=== PATIENT | female | born 1960 | race Caucasian/White ===

== ENCOUNTER 2025-03-16 12:43 | Emergency (ER) | payer MEDICARE, SELFPAY ==
[2025-03-16 12:48] VITALS: BP 141/91; PULSE 82; TEMP 36.8; O2SAT 99; BMI 15.9
--- NOTE | 2025-03-16 12:58 | PC.NURSE ---
Pain to left foot, foot is red in color, skin is warm and pulses present. Wound to left heel present, area is open in center with macerated skin surrounding site.
--- NOTE | 2025-03-16 13:10 | XR_ITS ---
[address] [address] Patient Name: RAGHAVENDRA LANG MRN: [id number] date: 1960 Sex: F Assigned Patient Location: ER Current Patient Location: ER Accession/Order Number: [id number] Exam Date: 03/16/2025 13:35 Report Date: 03/16/2025 13:36 At the request of: SALUD BILLS MD Procedure: XR foot LT min 3V 3 views left foot plain film COMPARISON:None HISTORY: Left foot heel ulcer. ACUTE FINDINGS: None DEGENERATIVE CHANGE: Mild. Posterior and inferior calcaneal spurring SOFT TISSUE FINDINGS: No subcutaneous air. No radiodense foreign body. Atherosclerosis. JOINT EFFUSION: None POSTOP CHANGES: None BONE MINERALIZATION: Adequate XR/XR foot LT min 3V IMPRESSION: No plain film findings of acute osteomyelitis. No subcutaneous air. Impression dictated by: Phan Saenz M.D. 03/16/2025 1:36 PM Dictation Location: [employer] Electronically authenticated by: [id number] Y Date: 03/16/2025 13:36
[2025-03-16 13:35] LABS: Basophils Absolute Auto 0.1 10^3/uL (0.0-0.1); Basophils Percent Auto 0.6 % (0.2-2.0); Eosinophils Absolute Auto 0.2 10^3/uL (0.0-0.7); Eosinophils Percent Auto 1.2 % (0.9-7.0); Hematocrit 41.4 % (36.0-48.0); Hemoglobin 13.9 g/dL (12.0-16.0); Immature Granulocytes Abs Auto 0.03 10^3/uL (0.00-0.03); Immature Granulocytes Pct Auto 0.2 % (0.0-0.5); Lymphocytes Absolute Auto 1.5 10^3/uL (1.2-3.8); Lymphocytes Percent Auto 12.2 % (20.5-60.0); Mean Corpuscular HGB Conc 33.6 g/dL (29.9-35.2); Mean Corpuscular Hemoglobin 30.2 pg (26.7-34.0); Mean Corpuscular Volume 89.8 fL (81.0-99.0); Monocytes Absolute Auto 0.8 10^3/uL (0.3-0.8); Monocytes Percent Auto 6.8 % (1.7-12.0); Neutrophils Absolute Auto 9.5 10^3/uL (1.4-6.5); Platelet Count 297 10^3/uL (150-450); Red Blood Count 4.61 10^6/uL (4.20-5.40); Red Cell Distribution Width 14.7 % (11.0-15.0); White Blood Count 12.1 10^3/uL (4.0-11.0)
[2025-03-16 13:40] LABS: Erythrocyte Sedimentation Rate 70 mm/hr (<=30)
[2025-03-16 13:50] LABS: Alanine Aminotransferase 43 U/L (14-59); Albumin Globulin Ratio 0.7; Alkaline Phosphatase 116 U/L (46-116); Anion Gap 15.6; Aspartate Amino Transferase 38 U/L (15-37); BUN Creatinine Ratio 24.3; Bilirubin Total 0.7 mg/dL (0.2-1.0); C Reactive Protein 4.02 mg/dL (<=0.50); Calcium 9.8 mg/dL (8.5-10.1); Carbon Dioxide 26.5 mmol/L (21.0-32.0); Chloride 100 mmol/L (98-107); Estimated GFR (African America >60 (>=60 mL/min/1.73m^2); Estimated GFR (Non-African Ame >60 (>=60 mL/min/1.73m^2); Globulin 4.6 g/dL; Glucose 143 mg/dL (74-106); Potassium 4.1 mmol/L (3.5-5.1); Sodium 138 mmol/L (136-145); Total Protein 7.6 g/dL (6.4-8.2)
[2025-03-16 14:03] VITALS: BP 137/66; PULSE 68; O2SAT 99
[2025-03-16] MEDS: CEPHALEXIN 500 MG CAPSULE PO (14:31)
--- NOTE | 2025-03-16 15:08 | ED.EXTPRO1 ---
HPI - Extremity Problem General Chief complaint: Extremity Problem, Nontraumatic Stated complaint: L LEG DISCOLORATION, L LEG PAIN Time Seen by Provider: 03/16/25 12:59 Source: patient Mode of arrival: walk-in Limitations: no limitations History of Present Illness HPI Narrative: The patient 65-year-old female with history of below the knee amputation, and history of diabetes as well as peripheral vascular disease, the patient have a history of stent placed in her left lower extremities and recently she was evaluated by vascular in another facility because she have some discolored spots in her toes. The patient is coming to the ER today after she already had an ulcers in her left lower extremity. Although them with most of them are healing but she have this ulcer at the posterior aspect of the left foot heel. That had a bullous fluid initially but apparently the fluid was burst and the patient was worried about the redness surrounding the bullous The patient was started antibiotic by one of her physician almost a week ago doxycycline twice daily are mostly covering for underlying infection The patient today is coming to the ER with a stool reason of the evaluation of the ulcer after the bullae burst No fever no chills no other concerns Pain is only limited when the patient put some weight on her left foot Related Data Home Medications ?Medication ?Instructions ?Recorded ?Confirmed atorvastatin 80 mg tablet 80 mg PO .daily 03/16/25 03/16/25 carvedilol 3.125 mg tablet 3.125 mg PO Q12H 03/16/25 03/16/25 doxycycline hyclate 100 mg tablet 100 mg PO Q12H 03/16/25 03/16/25 fluoxetine 40 mg capsule 40 mg PO DAILY 03/16/25 03/16/25 gabapentin 600 mg tablet 600 mg PO Q12H 03/16/25 03/16/25 rivaroxaban 20 mg tablet (Xarelto) 20 mg PO Q24H 03/16/25 03/16/25 sitagliptin phosphate 100 mg 100 mg PO DAILY 03/16/25 03/16/25 tablet (Januvia) spironolactone 25 mg tablet 25 mg PO Q12H 03/16/25 03/16/25 Previous Rx's ?Medication ?Instructions ?Recorded cephalexin 500 mg capsule 500 mg PO Q8H 7 days #21 caps 03/16/25 Allergies Allergy/AdvReac Type Severity Reaction Status Date / Time Sulfa (Sulfonamide AdvReac Intermediate Hives Verified 03/16/25 12:55 Antibiotics) Review of Systems ROS Status of ROS 10 or more systems reviewed and unremarkable except as noted in history and below PFSH PFSH Social History Little interest or pleasure in doing things: not at all Feeling down, depressed, or hopeless: not at all Exam Narrative Exam Narrative: Nurses notes and vital signs reviewed and patient is not hypoxic. General: Well-appearing and in no apparent distress. Skin: Warm, dry, no pallor noted. No rash. Head: Normocephalic, atraumatic. Neck: Supple, non-tender. Cardiovascular: Regular Rate and Rhythm without murmur, gallop or rub. Respiratory: No accessory muscle use or respiratory distress. Lungs are clear to auscultation, no wheezing, rales or rhonchi Chest Wall: no tenderness Back: No midline thoracic or lumbar vertebral tenderness. No CVA tenderness Musculoskeletal: Right below the knee amputation and the stump is healing well the patient have a chronic ulcer at the anterior aspect of the knee that is having a clean dressing on top of it and according to her there is a home health care nurse to take care over it with the dressing changes The patient left foot shows multiple discolored spots in the toes she does have anterior tibial pulse that is preserved and apparently marked by the vascular service for the location On the posterior aspect of the patient left foot there is an ulcer that is measuring 2 cm oval in shape with a surrounding redness that the patient is concerned about it is almost 1 to 2 cm of redness with no discharge and no drainage and no surrounding induration and there is no tenderness on palpation The patient also have a decubital ulcer that is almost 1 x 2 cm oval in shape and healing with a dry keloid on top of it no surrounding induration Constitutional Vital Signs, click to edit/add: Last Vital Signs Temp 98.2 F 03/16/25 12:48 Pulse 68 03/16/25 14:03 Resp 20 03/16/25 14:03 BP 137/66 03/16/25 14:03 Pulse Ox 99 03/16/25 14:03 O2 Del Method Room Air 03/16/25 14:03 Course Vital Signs Vital signs: Vital Signs Temperature 98.2 F 03/16/25 12:48 Pulse Rate 82 03/16/25 12:48 Respiratory Rate 18 03/16/25 12:48 Blood Pressure 141/91 03/16/25 12:48 Pulse Oximetry 99 03/16/25 12:48 Temperature 98.2 F 03/16/25 12:48 Pulse Rate 68 03/16/25 14:03 Respiratory Rate 20 03/16/25 14:03 Blood Pressure 137/66 03/16/25 14:03 Pulse Oximetry 99 03/16/25 14:03 Oxygen Delivery Method Room Air 03/16/25 14:03 MDM - Extremity (Nontraumatic) MDM Narrative Medical decision making narrative: The patient is a high risk patient history of diabetes and peripheral vascular disease but her ulcers seem to be healing and the fact that the bullae burst it showed the depth of the ulcer which is mostly stage II It is healing well right now although there is the redness that the patient is concerned about it is very mild and with the patient history of being on doxycycline and the fact that she is diabetic I will add Keflex to the doxycycline and I referred her to podiatry as outpatient The patient CBC shows mild leukocytosis and the chemistry was within normal she does have a elevated ESR and CRP but the x-ray does not show any osteomyelitis Clean dressing was applied and the patient is to monitor her symptoms in case no improvement she is to come back to the ER, on my clinical exam that also seem to be more chronic and healing than actively infected and the antibiotic was initiated just because of the history of the patient in the high risk Patient to come back in case of increasing redness fever or any other concerns Patient referred to podiatry as outpatient The patient is to follow up with primary care physician in next 2-3 days or to return to the emergency department should any of the signs or symptoms worsen or new symptoms develop. The patient agrees with the following Diagnosis and Treatment plan and the patient will be discharged home. Lab Data Labs: Lab Results 03/16/25 Range/Units 13:27 WBC 12.1 H (4.0-11.0) 10^3/uL RBC 4.61 (4.20-5.40) 10^6/uL Hgb 13.9 (12.0-16.0) g/dL Hct 41.4 (36.0-48.0) % MCV 89.8 (81.0-99.0) fL MCH 30.2 (26.7-34.0) pg MCHC 33.6 (29.9-35.2) g/dL RDW 14.7 (11.0-15.0) % Plt Count 297 (150-450) 10^3/uL MPV 10.0 (9.5-13.5) fL Neut % (Auto) 79.0 H (43.0-75.0) % Lymph % (Auto) 12.2 L (20.5-60.0) % Gentry % (Auto) 6.8 (1.7-12.0) % Eos % (Auto) 1.2 (0.9-7.0) % Baso % (Auto) 0.6 (0.2-2.0) % Neut # (Auto) 9.5 H (1.4-6.5) 10^3/uL Lymph # (Auto) 1.5 (1.2-3.8) 10^3/uL Gentry # (Auto) 0.8 (0.3-0.8) 10^3/uL Eos # (Auto) 0.2 (0.0-0.7) 10^3/uL Baso # (Auto) 0.1 (0.0-0.1) 10^3/uL Abs Immat Gran (auto) 0.03 (0.00-0.03) 10^3/uL Imm/Tot Granulo (auto) 0.2 (0.0-0.5) % ESR 70 H (<=30) mm/hr Sodium 138 (136-145) mmol/L Potassium 4.1 (3.5-5.1) mmol/L Chloride 100 (98-107) mmol/L Carbon Dioxide 26.5 (21.0-32.0) mmol/L Anion Gap 15.6 BUN 18.0 (7.0-18.0) mg/dL Creatinine 0.74 (0.55-1.02) mg/dL Est GFR ( Amer) >60 (>=60 mL/min/1.73m^2) Est GFR (Non-Af Amer) >60 (>=60 mL/min/1.73m^2) BUN/Creatinine Ratio 24.3 Glucose 143 H (74-106) mg/dL Calcium 9.8 (8.5-10.1) mg/dL Total Bilirubin 0.7 (0.2-1.0) mg/dL AST 38 H (15-37) U/L ALT 43 (14-59) U/L Alkaline Phosphatase 116 (46-116) U/L C-Reactive Protein 4.02 H (<=0.50) mg/dL Total Protein 7.6 (6.4-8.2) g/dL Albumin 3.0 L (3.4-5.0) g/dL Globulin 4.6 g/dL Albumin/Globulin Ratio 0.7 Discharge Plan Discharge Chief Complaint: Extremity Problem, Nontraumatic Clinical Impression: Cellulitis, Diabetic foot ulcer Patient Disposition: Home, Self-Care Time of Disposition Decision: 14:36 Condition: Good Prescriptions / Home Meds: New cephalexin 500 mg capsule 500 mg PO Q8H 7 Days Qty: 21 0RF No Action atorvastatin 80 mg tablet 80 mg PO .daily carvedilol 3.125 mg tablet 3.125 mg PO Q12H doxycycline hyclate 100 mg tablet 100 mg PO Q12H fluoxetine 40 mg capsule 40 mg PO DAILY gabapentin 600 mg tablet 600 mg PO Q12H Xarelto 20 mg tablet 20 mg PO Q24H Januvia 100 mg tablet 100 mg PO DAILY spironolactone 25 mg tablet 25 mg PO Q12H Print Language: Montenegrin Instructions: Cellulitis (ED), Chronic Wounds (ED) Referrals: [facility] [Primary Care Provider] - 1 week Ace Whatley DPM [Physician, Podiatry] - 1 week Discharge Date/Time: 03/16/25 14:52
== END 2025-03-16 14:52 | disposition home or self-care (01) ==
PROVIDERS: Emergency Provider Emergency Medicine
DX: E11.51 Type 2 diabetes mellitus with diabetic peripheral angiopathy without gangrene (principal); Z89.511 Acquired absence of right leg below knee; L03.116 Cellulitis of left lower limb; E11.621 Type 2 diabetes mellitus with foot ulcer; L97.529 Non-pressure chronic ulcer of other part of left foot with unspecified severity
CPT/HCPCS: 36415; 73630; 80053; 85025; 85652; 86140; 99284